=== PATIENT | female | born 1980 | race Caucasian/White ===

== ENCOUNTER 2018-07-20 16:16 | Emergency (ER) | payer MEDICAID ==
[~2018-07-20] VITALS: Ht 154.9 cm; Wt 56.7 kg
[2018-07-20 16:37] VITALS: BP 103/74; Ht 154.9 cm; Wt 56.7 kg
== END 2018-07-20 18:42 | disposition left against medical advice (07) ==
LOC: ED 16:16
DX: Z53.21 Procedure and treatment not carried out due to patient leaving prior to being seen by health care provider (principal)

== ENCOUNTER 2018-07-21 14:32 | Emergency (ER) | payer OTHER ==
[~2018-07-21] VITALS: Ht 154.9 cm; Wt 56.7 kg
[2018-07-21 14:55] VITALS: BP 110/76; Ht 154.9 cm; Wt 56.7 kg
== END 2018-07-21 16:51 | disposition home or self-care (01) ==
LOC: ED 14:32
DX: R51 Headache (principal); S16.1XXA Strain of muscle, fascia and tendon at neck level, initial encounter; V49.9XXA Car occupant (driver) (passenger) injured in unspecified traffic accident, initial encounter; Y93.I9 Activity, other involving external motion; Y92.411 Interstate highway as the place of occurrence of the external cause; Y99.8 Other external cause status
CPT/HCPCS: Q0162

== ENCOUNTER 2019-05-29 20:59 | Emergency (ER) | payer OTHER | END 2019-05-29 22:37 | disposition other institution (70) | LOC: ED 20:59 | DX: Z02.89 Encounter for other administrative examinations (principal) ==

== ENCOUNTER 2019-05-29 20:59 | Emergency (ER) | payer OTHER ==
[2019-05-29 22:37] VITALS: BP 110/70
== END 2019-05-29 22:37 | disposition other institution (70) ==
LOC: ED 20:59
DX: M54.5 Low back pain (principal); O33.9 Maternal care for disproportion, unspecified
CPT/HCPCS: J1885

== ENCOUNTER 2019-06-13 20:01 | Emergency (ER) | payer OTHER ==
[~2019-06-13] VITALS: Ht 154.9 cm; Wt 60.8 kg
[2019-06-13 22:21] VITALS: BP 116/82
== END 2019-06-13 22:21 | disposition home or self-care (01) ==
LOC: ED 20:01
DX: J06.9 Acute upper respiratory infection, unspecified (principal)

== ENCOUNTER 2019-08-04 12:58 | Emergency (ER) | payer OTHER ==
[~2019-08-04] VITALS: Ht 154.9 cm; Wt 58.1 kg
[2019-08-04 13:41] VITALS: Ht 154.9 cm; Wt 58.1 kg
[2019-08-04 16:30] VITALS: BP 120/76
== END 2019-08-04 16:30 | disposition home or self-care (01) ==
LOC: ED 12:58
DX: F07.81 Postconcussional syndrome (principal); S00.83XA Contusion of other part of head, initial encounter; Y04.2XXA Assault by strike against or bumped into by another person, initial encounter; Y93.89 Activity, other specified; Y92.830 Public park as the place of occurrence of the external cause; Y99.8 Other external cause status

== ENCOUNTER 2019-12-16 11:46 | Emergency (ER) | payer OTHER ==
[~2019-12-16] VITALS: Ht 152.4 cm; Wt 54.4 kg
[2019-12-16 11:51] VITALS: Ht 152.4 cm; Wt 54.4 kg
[2019-12-16 14:26] VITALS: BP 105/71
== END 2019-12-16 14:26 | disposition home or self-care (01) ==
LOC: ED 11:46
DX: S00.431A Contusion of right ear, initial encounter (principal); Y04.8XXA Assault by other bodily force, initial encounter; Y93.89 Activity, other specified; Y92.89 Other specified places as the place of occurrence of the external cause; Y99.8 Other external cause status
CPT/HCPCS: J2001

== ENCOUNTER 2019-12-27 23:16 | Emergency (ER) | payer OTHER | END 2019-12-28 00:26 | disposition other institution (70) | LOC: ED 23:16 | DX: Z02.89 Encounter for other administrative examinations (principal) ==

== ENCOUNTER 2019-12-27 23:16 | Emergency (ER) | payer OTHER ==
[~2019-12-27] VITALS: Ht 167.6 cm; Wt 68.0 kg
[2019-12-27 23:19] VITALS: BP 135/86; Ht 167.6 cm; Wt 68.0 kg
== END 2019-12-28 02:26 | disposition other institution (70) ==
LOC: ED 23:16
DX: S43.402A Unspecified sprain of left shoulder joint, initial encounter (principal); S00.431A Contusion of right ear, initial encounter; W22.8XXA Striking against or struck by other objects, initial encounter; Y93.89 Activity, other specified; Y92.89 Other specified places as the place of occurrence of the external cause; Y99.8 Other external cause status

== ENCOUNTER 2020-01-03 20:10 | Emergency (ER) | payer OTHER ==
[~2020-01-03] VITALS: Ht 154.9 cm; Wt 53.5 kg
[2020-01-03 20:18] VITALS: BP 129/78
== END 2020-01-03 22:06 | disposition left against medical advice (07) ==
LOC: ED 20:10
DX: Z53.21 Procedure and treatment not carried out due to patient leaving prior to being seen by health care provider (principal)

== ENCOUNTER 2020-01-04 06:34 | Emergency (ER) | payer OTHER ==
[~2020-01-04] VITALS: Ht 154.9 cm; Wt 53.3 kg
[2020-01-04 09:06] VITALS: BP 106/71
== END 2020-01-04 09:06 | disposition home or self-care (01) ==
LOC: ED 06:34
DX: S00.431A Contusion of right ear, initial encounter (principal); Y04.8XXA Assault by other bodily force, initial encounter; Y93.89 Activity, other specified; Y92.89 Other specified places as the place of occurrence of the external cause; Y99.8 Other external cause status
CPT/HCPCS: J2001